=== PATIENT | male | born 1990 | race Caucasian/White ===

== ENCOUNTER 2022-10-31 11:43 | Emergency (ER) | payer BC, SELFPAY ==
[2022-10-31 11:43] VITALS: BP 191/120; PULSE 79; RESP 16; TEMP 36.6; O2SAT 100; BMI 42.8
--- NOTE | 2022-10-31 12:11 | EDS_ITS ---
HPI History of Present Illness Chief Complaint: Abscess Detail of Chief Complaint: Abnormal swelling to left thigh Informant: patient Narrative Narrative: Patient presents with abnormal swelling to the left thigh that he had for several years. At times it will get red and hot and increased in pain. He is never seen anybody for this. He is a truck mechanic apprentice. Currently not having much discomfort. He denies any fevers. Prior similar symptoms: Yes PFSH PFSH Medical History (Updated 10/31/22 @ 12:[address] Berta Frederick, DO) HTN (hypertension) Home Medications clindamycin HCl 300 mg capsule (Cleocin HCl) 300 mg PO Q6H #40 CAPSULES 10/31/22 [Rx Last Taken Unknown] Allergy/AdvReac Type Severity Reaction Status Date / Time cefaclor [From Ceclor] Allergy PT UNSURE Verified 10/31/22 11:46 OF REACTION clarithromycin [From Biaxin] Allergy PT UNSURE Verified 10/31/22 11:46 OF REACTION loracarbef [From Lorabid] Allergy PT UNSURE Verified 10/31/22 11:46 OF REACTION Penicillins Allergy PT UNSURE Verified 10/31/22 11:47 OF REACTION Sulfa (Sulfonamide Allergy PT UNSURE Verified 10/31/22 11:46 Antibiotics) OF REACTION Social History Smoking Status: Current every day smoker tobacco type: cigars and smokeless tobacco ROS ROS ED Review of Systems ROS Unobtainable: other Constitutional Constitutional ED: Reports lethargy; Denies chills, fever(s), sweats or weight loss Eyes Eyes: Denies blurry vision, change in vision or diplopia ENT ENT ED: Denies rhinorrhea or sore throat Cardiovascular Cardiovascular: Denies chest pain, orthopnea or racing heartbeat Respiratory/Chest Respiratory/Chest: Denies cough, dyspnea, dyspnea on exertion, orthopnea or sputum Gastrointestinal Gastrointestinal: Denies abdominal pain, diarrhea, nausea or vomiting Genitourinary Genitourinary ED: Denies dysuria, hematuria or urinary frequency Musculoskeletal Musculoskeletal: Reports other Details: Lesion on posterior left thigh ; Denies arthralgias, back pain, myalgias or neck pain Integumentary Denies abscess, Abrasions or rash Neurologic Neurologic: Denies headache(s) or weakness Psychiatric Psychiatric: Denies anxiety, depression or suicidal thoughts Endocrine Endocrinology: Denies polydipsia, polyphagia or polyuria Hematologic/Lymphatic Hematologic/Lymphatic: Denies easy bleeding, easy bruising or lymphadenopathy Allergic/Immunologic Allergic/Immunologic ED: Denies mouth swelling, tongue swelling or urticaria EXAM Physical Exam Const Vital Signs: 10/31/22 11:43 Temperature 97.8 F Temperature Source Temporal Pulse Rate 79 Respiratory Rate 16 Blood Pressure 191/120 H Blood Pressure Mean 143 Pulse Ox 100 Oxygen Delivery Method Room Air Positive well nourished and well developed General Appearance ED: well developed and NAD HEENT Reports TM's clear and moist mucous membranes normocephalic and atraumatic; Negative for trauma or tenderness Tympanic Membrane ED: Yes TM's clear Eyes PERRL and EOMs intact bilaterally General Eye ED: Negative for pale conjunctiva or scleral icterus Neck no lymphadenopathy, supple and no JVD General: Negative for tenderness Chest Wall inspection of chest normal and palpation of chest normal Chest: Negative for tenderness Resp normal respiratory effort and clear to auscultation bilaterally Effort and Inspection: Negative for respiratory distress or pain with movement Auscultation: Negative for rhonchi, wheezes or diminished lung sounds Cardio regular rate, regular rhythm, S1 normal heart sound, S2 normal heart sound and no murmurs Peripheral Pulses: pulses 2+ throughout GI normal to inspection, nondistended, normoactive bowel sounds, soft to palpation, non-tender, non-distended and no masses Back/Spine no CVA tenderness and no thoracic nor lumbar tenderness Extremity Extremity Narrative: Posterior left thigh-patient has a area of slight fluctuance measuring approximately a centimeter in diameter with some surrounding induration. There is no erythema or cellulitic changes. Lesion consistent with a sebaceous cyst. It does not appear overtly infected at this time. General Extremety ED: Negative for edema General Extremity: Negative for edema Neuro oriented x3, CN's II-XII intact bilaterally, no sensory deficits noted and gait normal Sensorium / Orientation: awake, alert, oriented to person, oriented to place and oriented to time Motor Exam: strength 5/5 throughout and strength abnormal Psych mental status grossly normal Skin no rashes or lesions noted and no wounds MDM MDM MDM Narrative Medical decision making narrative: I suspect patient has a sebaceous cyst. He will be referred to dermatology. Patient will be given a prescription for clindamycin given his multiple drug allergies. Patient will be given instructions to return if increasing pain, redness, swelling, purulent drainage, or condition should worsen anyway. Discharge Plan Triage Chief Complaint: Abscess ED Midlevel Provider: Janes Watson ED Provider: Berta Frederick Dx/Rx/DC Orders Clinical Impression: Sebaceous cyst Instructions: ED Epidermoid Cyst, No Infection Prescriptions: New clindamycin HCl [Cleocin HCl] 300 mg capsule 300 mg PO Q6H Qty: 40 0RF Primary Care Provider: Care Physician,No Primary Referrals: Darvin Mina MD [Med Staff - Bottom Scrubber] - 3-5 Days NOT,DEFINED [Non-Staff] - Disposition Disposition: Home, Self Care
--- NOTE | 2022-10-31 12:27 | EX.ED.DYSGE1 ---
HPI <MAULIK Steele - Last Filed: 10/31/22 12:34> History of Present Illness Chief Complaint: Abscess Narrative Narrative: Patient is a 32-year-old male with no signal medical history presents to the emergency department with multiple years of cyst to the left posterior thigh. 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 Patient states that this did happen earlier this week. He is here for evaluation. Is not seen any PCP or jde developer for this. Denies any fever chills or infectious-like symptoms. He never has seen any drainage from the area. Currently right now it is not inflamed, is not painful. PFSH <MAULIK Steele - Last Filed: 10/31/22 12:34> [facility] Medical History (Updated 10/31/22 @ 12:[address] Berta Frederick, DO) HTN (hypertension) Home Medications clindamycin HCl 300 mg capsule (Cleocin HCl) 300 mg PO Q6H #40 CAPSULES 10/31/22 [Rx Last Taken Unknown] Allergy/AdvReac Type Severity Reaction Status Date / Time cefaclor [From Ceclor] Allergy PT UNSURE Verified 10/31/22 11:46 OF REACTION clarithromycin [From Biaxin] Allergy PT UNSURE Verified 10/31/22 11:46 OF REACTION loracarbef [From Lorabid] Allergy PT UNSURE Verified 10/31/22 11:46 OF REACTION Penicillins Allergy PT UNSURE Verified 10/31/22 11:47 OF REACTION Sulfa (Sulfonamide Allergy PT UNSURE Verified 10/31/22 11:46 Antibiotics) OF REACTION Social History Smoking Status: Current every day smoker tobacco type: cigars and smokeless tobacco ROS <MAULIK Steele - Last Filed: 10/31/22 12:34> ROS ED ROS Narrative Constitutional: Negative for fever, chills, weight loss, weakness Eyes: Negative for vision loss, vision change, double vision ENT: Negative for any sore throat, ear pain, congestion Cardiovascular: Negative for any chest pain, tightness, palpitations Respiratory: Negative for any cough, sputum production, hemoptysis, dyspnea, dyspnea on exertion, orthopnea Gastrointestinal: Negative for any abdominal pain, nausea, vomiting, diarrhea, constipation, blood in stool, blood in vomit : Negative for any urinary frequency, dysuria, retention, blood in urine Muscle skeletal: Negative for any muscle joint pain, stiffness, myalgias, arthralgias, neck pain, back pain Neurological: Negative for any headache, syncope, numbness or tingling, dizziness Skin: Negative for any rashes, lumps, itching, abrasions, lacerations. Cyst, lump to the left posterior thigh Psychiatric: Negative for any depression, anxiety, stress, suicidal ideation, homicidal ideation Hematologic: Negative for any easy bruising, excessive bruising, easy bleeding Allergies: Negative for any eczema, hives, rash EXAM <MAULIK Steele - Last Filed: 10/31/22 12:34> Physical Exam Narrative Exam Narrative: Vital signs reviewed. HEET: Head normocephalic atraumatic, TMs clear bilaterally. Posterior pharynx is clear, moist mucous membranes. Nares clear bilaterally. Neck: Supple with no lymphadenopathy or tenderness. No signs of meningismus, negative jolt sign. Cardiac: Regular rate and rhythm no murmurs gallops or rubs, equal peripheral pulses bilaterally. Respiratory: Lungs clear to auscultation bilaterally. No chest tenderness. Abdomen: Soft, nontender, nondistended. No abdominal bruit or pulsatile masses. No hepatosplenomegaly Extremities: No peripheral edema, no signs of gross trauma or deformity. Active full range of motion of all extremities. Patient has a what appears to be sebaceous cyst to the posterior left thigh. This area does not appear to be erythematous, this appears to be no cellulitis. This appears to be a sebaceous cyst that can be intermittently fluctuant. Neuro: Cranial nerves II through XII intact, no focal neurological deficits. Skin: Clean dry and intact with no rash, purpura, petechiae, vesicles or pustules. Backs/flank: No CVA tenderness, no midline spinal tenderness, no deformity. Psych: Normal mood and affect. No SI, HI or acute psychosis. Const Vital Signs: 10/31/22 11:43 Temperature 97.8 F Temperature Source Temporal Pulse Rate 79 Respiratory Rate 16 Blood Pressure 191/120 H Blood Pressure Mean 143 Pulse Ox 100 Oxygen Delivery Method Room Air Positive well nourished and well developed General Appearance ED: well developed <Dr. Berta Frederick DO - Last Filed: 10/31/22 12:42> Physical Exam Const Vital Signs: 10/31/22 11:43 Temperature 97.8 F Temperature Source Temporal Pulse Rate 79 Respiratory Rate 16 Blood Pressure 191/120 H Blood Pressure Mean 143 Pulse Ox 100 Oxygen Delivery Method Room Air [facility] <MAULIK Steele - Last Filed: 10/31/22 12:34> [facility] Treatment and Re-Evaluation Narrative: Patient appears generally well. Patient is in no distress. Patient presents to the emergency department for multiple years of cyst to the left posterior thigh. This area appears to be not infectious. There is no signs or symptoms of abscess. No drainage. There is no surrounding cellulitis. Patient will need to follow-up with dermatology. He will also be given a prescription for clindamycin. No imaging is necessary at this time. Patient is happy with the plan of care, I&D is not recommended secondary to having open wound. Patient will follow-up outpatient. <Dr. Berta Frederick DO - Last Filed: 10/31/22 12:42> [facility] Narrative Medical decision making narrative: I have personally performed a face to face assessment of the patient and have reviewed the KEHINDE Note. I performed a substantive portion of the visit including all aspects of the following. My rizzo findings include: History is [please see my independent dictation. Patient presented with a cyst/abscess to the left posterior thigh that has had off-and-on for many years. Patient is a trailer tank truck driver. Patient states that earlier in the week he had pain and increased swelling and redness to the area but that seems to have gotten better. He is never seen anybody for this. He denies fevers.] Exam is [HEENT-PERRLA, EOMI. Cranial nerves II through XII grossly intact. TMs clear. Mucous membranes moist. No adenopathy. Cardiovascular-regular rate and rhythm without murmur or ectopy Lungs-clear to auscultation, chest wall stable without crepitus or subcu emphysema Abdomen-normoactive bowel sounds, soft, nontender, no rebound or rigidity, no peritoneal signs. Extremities-intact ?4, normal range of motion, normal pulses, atraumatic. Left posterior thigh-patient has what looks like a sebaceous cyst with a central portion measuring about 1 cm that slightly fluctuant but there is no erythema or warmth or cellulitic changes. Periphery of the lesion is slightly indurated and discolored with what appears to be a chronic discoloration.] Medical Decison Making [patient will be started on clindamycin and will be given referral to dermatology. I do not feel this needs acutely I&D at this time. Patient comfortable with plan.] Other additions or changes: [None] Lab Data Attestation: I reviewed the patient's lab results. Discharge Plan Triage Chief Complaint: Abscess ED Midlevel Provider: Janes Watson ED Provider: Berta Frederick Dx/Rx/DC Orders Clinical Impression: Sebaceous cyst Instructions: ED Epidermoid Cyst, No Infection Prescriptions: New clindamycin HCl [Cleocin HCl] 300 mg capsule 300 mg PO Q6H Qty: 40 0RF Primary Care Provider: Care Physician,No Primary Referrals: Darvin Mina MD [Med Staff - Program Manufacturing Leader] - 3-5 Days NOT,DEFINED [Non-Staff] - Disposition Disposition: Home, Self Care Discharge Date/Time: 10/31/22 12:40
== END 2022-10-31 12:40 | disposition home or self-care (01) ==
PROVIDERS: Emergency Provider Emergency Medicine; Visit Provider Emergency Medicine
DX: L72.3 Sebaceous cyst (principal); I10 Essential (primary) hypertension; F17.290 Nicotine dependence, other tobacco product, uncomplicated; F17.220 Nicotine dependence, chewing tobacco, uncomplicated
CPT/HCPCS: 99282